=== PATIENT | female | born 1950 ===

== ENCOUNTER → 2018-01-24 13:19 | Outpatient (REF) | payer MEDICARE, MEDICAID, SELFPAY ==
[2018-01-24 16:18] LABS: Vancomycin,Trough 19.7 mcg/ml (10.0-20.0)
== END ==
LOC: LAB 13:19
PROVIDERS: Visit Provider Internal Medicine Adolescent Medicine
DX: Z51.81 Encounter for therapeutic drug level monitoring (principal)
CPT/HCPCS: 80202

== ENCOUNTER → 2018-01-31 10:39 | Outpatient (REF) | payer SELFPAY ==
[2018-01-31 13:55] LABS: Anion Gap 17.2 mEq/L (5-15); Blood Urea Nitrogen 46 mg/dL (7-18); Calcium 8.5 mg/dL (8.5-10.1); Carbon Dioxide 27 mmol/L (21.0-32.0); Chloride 107 mmol/L (98-107); Creatinine,Serum 2.68 mg/dL (0.55-1.02); Estimated Glomerular Filt Rate 18 ml/min (>60); GFR (African American) 21 ML/MIN (>60); Glucose 83 mg/dL (74-106); Potassium 4.2 mmoL/L (3.5-5.1); Sodium 147 mmol/L (136-145)
[2018-01-31 14:20] LABS: Vancomycin,Trough 26.3 mcg/ml (10.0-20.0)
== END ==
LOC: LAB 10:39
PROVIDERS: Visit Provider Internal Medicine Adolescent Medicine
DX: B95.62 Methicillin resistant Staphylococcus aureus infection as the cause of diseases classified elsewhere (principal)
CPT/HCPCS: 80048; 80202